=== PATIENT | female | born 1975 | race Caucasian/White ===

== ENCOUNTER 2020-08-27 10:05 | Emergency (ER) | payer OTHER ==
[~2020-08-27] VITALS: Ht 157.5 cm; Wt 56.7 kg
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
[2020-08-27 10:10] VITALS: BP 134/82
[2020-08-27] MEDS ORDERED: Mineral Oil 30ml ud ORAL ONE (10:15)
[2020-08-27] MEDS ORDERED: Mineral Oil 30ml ud ORAL PRN (10:15)
[2020-08-27] MEDS ORDERED: Benzonatate 100mg Perles ORAL ONE (10:30)
--- NOTE | 2020-08-27 10:37 | NUR ---
ED Nurse Note: RN applied dry dressing and secured with tape on left middle finger with wound.
--- NOTE | 2020-08-27 10:54 | NUR ---
HAND-OFF: Report given to Bessie SKY.
--- NOTE | 2020-08-27 11:00 | NUR ---
ED Nurse Note: pt received from JOSE DANIEL Baron. pt is in bed, [employer] is at pt bedside interviewing pt
[2020-08-27] MEDS ORDERED: ACETAMINOPHEN500 M3 ORAL (11:33)
[2020-08-27] MEDS ORDERED: BACITRACIN ZIN1 EACH TOPIC (11:44)
[2020-08-27 11:45] VITALS: BP 134/82
--- NOTE | 2020-08-27 11:45 | NUR ---
ER DISCHARGE NOTE: Patient is cleared to be discharged per ERMD, pt is aox4, on room air, with stable vital signs. pt was given dc and prescription instructions, pt was able to verbalize understanding, pt id band removed without complications. pt is able to ambulate with steady gait. pt took all belongings.
== END 2020-08-27 11:45 | disposition home or self-care (01) ==
LOC: EDBD 10:05 → EMR 10:26
DX: T59.3X3A Toxic effect of lacrimogenic gas, assault, initial encounter (principal); H10.9 Unspecified conjunctivitis; X58.XXXA Exposure to other specified factors, initial encounter; Y92.9 Unspecified place or not applicable
CPT/HCPCS: 99282